=== PATIENT | male | born 1970 | race African-American/Black ===

== ENCOUNTER 2017-02-06 17:11 | Emergency (ER) | payer OTHER ==
[~2017-02-06] VITALS: Ht 180.3 cm; Wt 70.3 kg
[2017-02-06 17:12] VITALS: BP 123/78
[2017-02-06] MEDS ORDERED: PREDNISONE50 MG PO (17:33)
== END 2017-02-06 18:00 | disposition home or self-care (01) ==
LOC: ER 17:11
DX: T63.441A Toxic effect of venom of bees, accidental (unintentional), initial encounter (principal); M79.89 Other specified soft tissue disorders; F17.210 Nicotine dependence, cigarettes, uncomplicated; F10.99 Alcohol use, unspecified with unspecified alcohol-induced disorder; F14.10 Cocaine abuse, uncomplicated; Y92.89 Other specified places as the place of occurrence of the external cause